=== PATIENT | male | born 1990 | race Caucasian/White ===

== ENCOUNTER 2017-06-20 20:27 | Emergency (ER) | payer BC, OTHER ==
[~2017-06-20] VITALS: Ht 177.8 cm; Wt 97.5 kg
--- OUTSIDE RECORDS SUMMARY | 2017-06-20 20:34 | XMS REPORT ---
Author Author Hedy Perry Organization [facility] Address [address] [place], [place] [id number] Care Team Providers Care Seal Mixer Name Role Phone Hedy Perry PCP Unavailable Allergies and Adverse Reactions Name Reaction Notes Ceclor Plan of Treatment Planned Activity Comments Planned Date Planned Time Plan/Goal COMPLETE CBC W/AUTO DIFF WBC 12/30/2015 12:00 AM COMPREHEN METABOLIC PANEL 12/30/2015 12:00 AM LIPID PANEL 12/30/2015 12:00 AM ASSAY THYROID STIM HORMONE 12/30/2015 12:00 AM Medications Active Name Start Date Estimated Completion Date SIG Comments Augmentin 875-125 mg oral tablet 12/30/2015 01/06/2016 take 1 tablet by oral route every 12 hours for 7 days Name Start Date Expiration Date SIG Comments cyclobenzaprine 5 mg oral tablet 06/30/2014 07/14/2014 take 1 tablet (5 mg) by oral route 3 times per day as needed for muscle strain Problem List Description Status Onset *No known medical problems Active Vital Signs Date Time BP-Sys(mm[Hg] BP-Chelsie(mm[Hg]) HR(bpm) RR(rpm) Temp WT HT HC BMI BSA BMI Percentile O2 Sat(%) 12/30/2015 10:16:00 AM 124 mmHg 68 mmHg 99 bpm 18 rpm 97.8 F 195.5 lbs 70 in 28.05 kg/m2 2.09 m2 97 % 11/15/2015 5:39:00 PM 89 bpm 18 rpm 97.7 F 187.6 lbs 70 in 26.9175 kg/m 2.0501 m 99 % 06/30/2014 6:18:00 PM 128 mmHg 72 mmHg 84 bpm 20 rpm 99 F 200 lbs 70 in 28.70 kg/m2 2.12 m2 99 % Social History Name Description Comments Tobacco Current every day smoker 12/30/2015 - History of Procedures Date Ordered Description Order Status 11/15/2015 12:00 AM Depo-Medrol, Per 80 Mg [facility]#[address]-07 Reviewed 11/15/2015 12:00 AM Decadron, Per 1 Mg [facility]# [address]-99 Reviewed 11/15/2015 12:00 AM THER/PROPH/DIAG INJ SC/IM Reviewed 12/30/2015 12:00 AM TDAP VACCINE 7 YRS/> IM Reviewed Results Summary Not available. History Of Immunizations Name Date Admin Mfg Name Mfg Code Trade Name Lot# Route Inj Vis Given Vis Pub CVX Tdap 12/30/2015 AmberWave SKB BOOSTRIX [id number] Intramuscular Right Deltoid 12/30/2015 06/23/2014 115 History of Past Illness Name Date of Onset Comments *No known medical problems Cervical strain Jun 30 2014 6:23PM Muscle Spasm Jun 30 2014 6:23PM Allergic contact dermatitis due to plants, except food Nov 15 2015 5:40PM Fatigue, unspecified type Dec 30 2015 10:19AM Screening for ischemic heart disease Dec 30 2015 10:19AM Family history of diabetes mellitus in brother Dec 30 2015 10:19AM Dog bite Dec 30 2015 10:19AM Payers Insurance Name Company Name Plan Name Plan Number Policy Number Policy Group Number Start Date [employer] [place] [id number] N/A [employer] [place] [id number] N/A [employer] [place] [id number] N/A History of Encounters Visit Date Visit Type Provider 12/30/2015 Office visit Hedy Perry APRN 11/15/2015 Office visit Moshe Pressley APRN 06/30/2014 Office visit Janis Goode APRN
--- OUTSIDE RECORDS SUMMARY | 2017-06-20 20:34 | XMS REPORT ---
Author Author Moshe Pressley [facility] Address [address] [place], [place] [phone] Care Team Providers Care Film Editor Supervisor Name Role Phone Moshe Pressley PCP Allergies and Adverse Reactions Name Reaction Notes Ceclor Plan of Treatment Not available. Medications Name Start Date Expiration Date SIG Comments cyclobenzaprine 5 mg oral tablet 06/30/2014 07/14/2014 take 1 tablet (5 mg) by oral route 3 times per day as needed for muscle strain Problem List Description Status Onset *No known medical problems Active Vital Signs Date Time BP-Sys(mm[Hg] BP-Chelsie(mm[Hg]) HR(bpm) RR(rpm) Temp WT HT HC BMI BSA BMI Percentile O2 Sat(%) 11/15/2015 5:39:00 PM 89 bpm 18 rpm 97.7 F 187.6 lbs 70 in 26.92 kg/m2 2.05 m2 99 % 06/30/2014 6:18:00 PM 128 mmHg 72 mmHg 84 bpm 20 rpm 99 F 200 lbs 70 in 28.70 kg/m2 2.1167 m 99 % Social History Name Description Comments Tobacco Never smoker Alcohol Light History of Procedures Date Ordered Description Order Status 11/15/2015 12:00 AM Depo-Medrol, Per 80 Mg [facility]#[id number] Reviewed 11/15/2015 12:00 AM Decadron, Per 1 Mg [facility]# [address]-21 Reviewed 11/15/2015 12:00 AM THER/PROPH/DIAG INJ SC/IM Reviewed Results Summary Not available. History Of Immunizations Not available. History of Past Illness Name Date of Onset Comments *No known medical problems Cervical strain Jun 30 2014 6:23PM Muscle Spasm Jun 30 2014 6:23PM Allergic contact dermatitis due to plants, except food Nov 15 2015 5:40PM Payers Insurance Name Company Name Plan Name Plan Number Policy Number Policy Group Number [id number] N/A [employer] [place] [id number] N/A [employer] [place] [id number] N/A History of Encounters Visit Date Visit Type Provider 11/15/2015 Office visit Moshe Pressley APRN 06/30/2014 Office visit Janis Goode APRN
--- OUTSIDE RECORDS SUMMARY | 2017-06-20 20:35 | XMS REPORT ---
Author Author Moshe Pressley [facility] Address [address] [place], [place] [phone] Care Team Providers Care Copy Writer Name Role Phone Moshe Pressley PCP Allergies and Adverse Reactions Name Reaction Notes Ceclor Plan of Treatment Planned Activity Comments Planned Date Planned Time Plan/Goal COMPLETE CBC W/AUTO DIFF WBC 12/30/2015 12:00 AM COMPREHEN METABOLIC PANEL 12/30/2015 12:00 AM LIPID PANEL 12/30/2015 12:00 AM ASSAY THYROID STIM HORMONE 12/30/2015 12:00 AM Medications Name Start Date Expiration Date SIG Comments cyclobenzaprine 5 mg oral tablet 06/30/2014 07/14/2014 take 1 tablet (5 mg) by oral route 3 times per day as needed for muscle strain Augmentin 875-125 mg oral tablet 12/30/2015 01/06/2016 take 1 tablet by oral route every 12 hours for 7 days Problem List Description Status Onset *No known medical problems Active Vital Signs Date Time BP-Sys(mm[Hg] BP-Chelsie(mm[Hg]) HR(bpm) RR(rpm) Temp WT HT HC BMI BSA BMI Percentile O2 Sat(%) 01/31/2016 5:17:00 PM 124 mmHg 62 mmHg 77 bpm 18 rpm 98.2 F 197.375 lbs 70 in 28.32 kg/m2 2.10 m2 99 % 12/30/2015 10:16:00 AM 124 mmHg 68 mmHg 99 bpm 18 rpm 97.8 F 195.5 lbs 70 in 28.051 kg/m 2.0928 m 97 % 11/15/2015 5:39:00 PM 89 bpm 18 rpm 97.7 F 187.6 lbs 70 in 26.92 kg/m2 2.05 m2 99 % 06/30/2014 6:18:00 PM 128 mmHg 72 mmHg 84 bpm 20 rpm 99 F 200 lbs 70 in 28.6967 kg/m 2.1167 m 99 % Social History Name Description Comments Tobacco Current every day smoker 12/30/2015 - History of Procedures Date Ordered Description Order Status 11/15/2015 12:00 AM Depo-Medrol, Per 80 Mg [facility]#[id number] Reviewed 11/15/2015 12:00 AM Decadron, Per 1 Mg [place]# [address]-96 Reviewed 11/15/2015 12:00 AM THER/PROPH/DIAG INJ SC/IM Reviewed 12/30/2015 12:00 AM TDAP VACCINE 7 YRS/> IM Reviewed 01/31/2016 12:00 AM Decadron, Per 1 Mg [facility]# [address]-99 Reviewed 01/31/2016 12:00 AM Depo-Medrol, Per 80 Mg [facility]#[address]-60 Reviewed Results Summary Not available. History Of Immunizations Name Date Admin Mfg Name Mfg Code Trade Name Lot# Route Inj Vis Given Vis Pub CVX Tdap 12/30/2015 [employer] SKB BOOSTRIX [id number] Intramuscular Right Deltoid 12/30/2015 [...] 10:19AM Dog bite Dec 30 2015 10:19AM Allergic contact dermatitis due to plants, except food Jan 31 2016 5:18PM Payers Insurance Name Company Name Plan Name Plan Number Policy Number Policy Group Number Start Date [employer] [place] [id number] N/A [employer] [place] [id number] N/A [employer] [place] [id number] N/A History of Encounters Visit Date Visit Type Provider 01/31/2016 Office visit Moshe Pressley APRN 12/30/2015 Office visit Hedy Perry APRN 11/15/2015 Office visit Moshe Pressley APRN 06/30/2014 Office visit Janis Goode APRN
--- OUTSIDE RECORDS SUMMARY | 2017-06-20 20:35 | XMS REPORT | Continuity of Care Document ---
Author Author [facility] Organization [facility] Address Unknown Phone Unavailable Allergies There is no data. Medications There is no data. Problems There is no data. Procedures There is no data. Results There is no data. Encounters ACCT No. Visit Date/Time Discharge Status Pt. Type Provider Facility Loc./Unit Complaint [id number] 02/21/2016 19:16:04 02/21/2016 23:59:59 [facility] Outpatient Moshe Pressley [id number] 01/31/2016 18:11:05 01/31/2016 23:59:59 [facility] Outpatient Moshe Pressley [id number] 12/30/2015 10:59:54 12/30/2015 23:59:59 [facility] Outpatient Hedy Perry [id number] 11/15/2015 18:34:52 11/15/2015 23:59:59 [facility] Outpatient Moshe Pressley
--- OUTSIDE RECORDS SUMMARY | 2017-06-20 20:35 | XMS REPORT ---
Author Author Moshe Pressley [facility] Address [address] [place], [place] [phone] Care Team Providers Care Honing Machine Try Out Setter Name Role Phone Moshe Pressley PCP Allergies and Adverse Reactions Name Reaction Notes Ceclor Plan of Treatment Planned Activity Comments Planned Date Planned Time Plan/Goal CBC With Auto Differential 12/30/2015 12:00 AM CMP (comprehensive metabolic panel) 12/30/2015 12:00 AM .Lipid Panel 12/30/2015 12:00 AM TSH 12/30/2015 12:00 AM Medications Name Start Date Expiration Date SIG Comments cyclobenzaprine 5 mg oral tablet 06/30/2014 07/14/2014 take 1 tablet (5 mg) by oral route 3 times per day as needed for muscle strain Augmentin 875-125 mg oral tablet 12/30/2015 01/06/2016 take 1 tablet by oral route every 12 hours for 7 days Zofran ODT 4 mg oral tablet,disintegrating 02/21/2016 02/24/2016 dissolve 1 tablet by oral route every 8 hours for 3 days Problem List Description Status Onset *No known medical problems Active Vital Signs Date Time BP-Sys(mm[Hg] BP-Chelsie(mm[Hg]) HR(bpm) RR(rpm) Temp WT HT HC BMI BSA BMI Percentile O2 Sat(%) 02/21/2016 6:20:00 PM 130 mmHg 78 mmHg 88 bpm 98.6 F 197 lbs 70 in 28.27 kg/m2 2.10 m2 100 % 01/31/2016 5:17:00 PM 124 mmHg 62 mmHg 77 bpm 18 rpm 98.2 F 197.375 lbs 70 in 28.3201 kg/m 2.1028 m 99 % 12/30/2015 10:16:00 AM 124 mmHg [...] 11/15/2015 12:00 AM Depo-Medrol, Per 80 Mg [facility]#[id number] Reviewed 11/15/2015 12:00 AM Decadron, Per 1 Mg [facility]# [address]-25 Reviewed 11/15/2015 12:00 AM THER/PROPH/DIAG INJ SC/IM Reviewed 12/30/2015 12:00 AM TDAP VACCINE 7 YRS/> IM Reviewed 01/31/2016 12:00 AM Decadron, Per 1 Mg [facility]# [address]-98 Reviewed 01/31/2016 12:00 AM Depo-Medrol, Per 80 Mg [facility]#[address]-91 Reviewed Results Summary Not available. History Of Immunizations Name Date Admin Mfg Name Mfg Code Trade Name Lot# Route Inj Vis Given Vis Pub CVX Tdap 12/30/2015 Janrain SKB BOOSTRIX [id number] Intramuscular Right Deltoid 12/30/2015 [...] plants, except food Jan 31 2016 5:18PM Viral gastroenteritis Feb 21 2016 6:23PM Fever in other diseases Feb 21 2016 6:23PM Payers Insurance Name Company Name Plan Name Plan Number Policy Number Policy Group Number Start Date [employer] [place] [id number] N/A BCBS [employer] [facility] [id number] N/A [employer] [place] [id number] N/A History of Encounters Visit Date Visit Type Provider 02/21/2016 Office visit Moshe Pressley APRN 01/31/2016 Office visit Moshe Pressley APRN 12/30/2015 Office visit Hedy Perry APRN 11/15/2015 Office visit Moshe Pressley APRN 06/30/2014 Office visit Janis Goode APRN
[2017-06-20] MEDS ORDERED: KETOROLAC 30 MG/ML VIAL IVP ONE (20:45)
--- NOTE | 2017-06-20 20:48 | ED Chest Pain ---
General Chief Complaint: Chest Pain Stated Complaint: CHEST PAIN Source: patient Exam Limitations: no limitations History of Present Illness Date Seen by Provider: Jun 20, 2017 Time Seen by Provider: 20:46 Initial Comments To ER per private vehicle with reports of sharp right sided sternal chest pain. This began when he was climbing into his truck and reached over to pull the door shut he developed a sharp right-sided chest pain. This then became a heavy sensation and that was worsened with deep breathing so he was breathing very shallow. He does smoke cigarettes family history of cardiovascular disease. Movement worsens the pain and rest improves the pain Timing/Duration: 1-3 hours Severity/Quality: moderate Location: central Radiation: no radiation Activities at Onset: none Allergies and Home Medications Allergies Coded Allergies: cefaclor (Unverified Adverse Reaction, Unknown, 06/20/17) Home Medications No Active Prescriptions or Reported Meds Review of Systems Constitutional: see HPI EENTM: No Symptoms Reported Respiratory: No Symptoms Reported Cardiovascular: See HPI, Chest Pain Gastrointestinal: No Symptoms Reported Genitourinary: No Symptoms Reported Musculoskeletal: no symptoms reported Skin: no symptoms reported Psychiatric/Neurological: No Symptoms Reported Endocrine: No Symptoms Reported Past Liqvmqc-Gtrpzv-Ywyzhg Hx Patient Social History Recent Foreign Travel: No Contact w/Someone Who Travel: No Physical Exam Vital Signs Vital Signs - First Documented 06/20/17 06/20/17 20:45 21:19 Temp 98.2 Pulse 78 Resp 18 B/P (MAP) 152/97 (115) O2 Delivery Room Air Capillary Refill : General Appearance: No Apparent Distress, WD/WN HEENT: PERRL/EOMI, TMs Normal Respiratory: Normal Breath Sounds, No Accessory Muscle Use, No Respiratory Distress, Other (right sternal border is tender to palpation, pain increases with adduction of the arms) Cardiovascular: Regular Rate, Rhythm, Normal Peripheral Pulses Gastrointestinal: Normal Bowel Sounds, Non Tender, Soft Extremity: Normal Capillary Refill, Normal Inspection Neurologic/Psychiatric: Alert, Oriented x3, No Motor/Sensory Deficits Skin: Normal Color, Warm/Dry Progress/Results/Core Measures Results/Orders Lab Results Laboratory Tests Test 06/20/17 20:52 Range/Units White Blood Count 10.4 4.3-11.0 10^3/uL Red Blood Count 5.39 4.35-5.85 10^6/uL Hemoglobin 17.3 13.3-17.7 G/DL Hematocrit 47 40-54 % Mean Corpuscular Volume 88 80-99 FL Mean Corpuscular Hemoglobin 32 25-34 PG Mean Corpuscular Hemoglobin Concent 37 H 32-36 G/DL Red Cell Distribution Width 12.2 10.0-14.5 % Platelet Count 295 130-400 10^3/uL Mean Platelet Volume 10.1 7.4-10.4 FL Neutrophils (%) (Auto) 71 42-75 % Lymphocytes (%) (Auto) 18 12-44 % Monocytes (%) (Auto) 9 0-12 % Eosinophils (%) (Auto) 3 0-10 % Basophils (%) (Auto) 1 0-10 % Neutrophils # (Auto) 7.3 1.8-7.8 X 10^3 Lymphocytes # (Auto) 1.8 1.0-4.0 X 10^3 Monocytes # (Auto) 0.9 0.0-1.0 X 10^3 Eosinophils # (Auto) 0.3 0.0-0.3 10^3/uL Basophils # (Auto) 0.1 0.0-0.1 10^3/uL D-Dimer < 0.27 0.00-0.49 UG/ML Sodium Level 139 135-145 MMOL/L Potassium Level 3.8 3.6-5.0 MMOL/L Chloride Level 103 98-107 MMOL/L Carbon Dioxide Level 22 21-32 MMOL/L Anion Gap 14 5-14 MMOL/L Blood Urea Nitrogen 8 7-18 MG/DL Creatinine 0.80 0.60-1.30 MG/DL Estimat Glomerular Filtration Rate > 60 BUN/Creatinine Ratio 10 Glucose Level 95 70-105 MG/DL Calcium Level 9.4 8.5-10.1 MG/DL Total Bilirubin 0.5 0.1-1.0 MG/DL Aspartate Amino Transf (AST/SGOT) 32 5-34 U/L Alanine Aminotransferase (ALT/SGPT) 95 H 0-55 U/L Alkaline Phosphatase 71 40-136 U/L Troponin I < 0.30 <0.30 NG/ML Total Protein 7.6 6.4-8.2 GM/DL Albumin 4.6 H 3.2-4.5 GM/DL My Orders Orders - ROJELIO HOLLINS [facility] [employer] Cbc With Automated Diff (06/20/17 20:44) Comprehensive Metabolic Panel (06/20/17 20:44) Fibrin Degradation Products (06/20/17 20:44) Chest Pa/Lat (2 View) (06/20/17 20:44) Ekg Tracing (06/20/17 20:44) Troponin I (06/20/17 20:44) Saline Lock/Iv-Start (06/20/17 20:44) Ketorolac Injection (Toradol Injection) (06/20/17 20:45) Medications Given in ED Current Medications Medications Dose Ordered Sig/Arnol Route Start Time Stop Time Status Last Admin Dose Admin Ketorolac Tromethamine 30 mg ONCE ONCE IVP 06/20/17 20:45 06/20/17 20:46 DC 06/20/17 20:58 30 MG Vital Signs/I&O Vital Sign - Last 12Hours 06/20/17 06/20/17 20:45 21:19 Temp 98.2 Pulse 78 Resp 18 B/P (MAP) 152/97 (115) O2 Delivery Room Air Departure Impression Impression: Primary Impression: Chest wall pain Disposition: HOME, SELF-CARE Condition: Stable Departure-Patient Inst. Decision time for Depature: 21:58 Referrals: NO,LOCAL PHYSICIAN (PCP) Primary Care Physician Patient Instructions: Chest Pain That Is Not Caused by the Heart (DC) Add. Discharge Instructions: 1. Return to ER for any concerns 2. Follow-up with your doctor next week 3. All discharge instructions reviewed with patient and/or family. Voiced understanding. Scripts No Active Prescriptions or Reported Meds ROJELIO HOLLINS APRN Jun 20, 2017 20:48
[2017-06-20 21:02] LABS: BASOPHILS # (AUTO) 0.1 10^3/uL (0.0-0.1); BASOPHILS % (AUTO) 1 % (0-10); EOSINOPHILS # (AUTO) 0.3 10^3/uL (0.0-0.3); EOSINOPHILS % (AUTO) 3 % (0-10); HEMATOCRIT 47 % (40-54); HEMOGLOBIN 17.3 G/DL (13.3-17.7); LYMPHOCYTES # (AUTO) 1.8 X 10^3 (1.0-4.0); LYMPHOCYTES % (AUTO) 18 % (12-44); MEAN CORPUSCULAR HEMOGLOBIN 32 PG (25-34); MEAN CORPUSCULAR HGB CONC 37 G/DL (32-36); MEAN CORPUSCULAR VOLUME 88 FL (80-99); MEAN PLATELET VOLUME 10.1 FL (7.4-10.4); MONOCYTES # (AUTO) 0.9 X 10^3 (0.0-1.0); MONOCYTES % (AUTO) 9 % (0-12); NEUTROPHILS # (AUTO) 7.3 X 10^3 (1.8-7.8); NEUTROPHILS % (AUTO) 71 % (42-75); PLATELET COUNT 295 10^3/uL (130-400); RED BLOOD COUNT 5.39 10^6/uL (4.35-5.85); RED CELL DISTRIBUTION WIDTH 12.2 % (10.0-14.5); WHITE BLOOD COUNT 10.4 10^3/uL (4.3-11.0)
[2017-06-20 21:20] LABS: ALANINE AMINOTRANSFERASE 95 U/L (0-55); ALBUMIN 4.6 GM/DL (3.2-4.5); ALKALINE PHOSPHATASE 71 U/L (40-136); BILIRUBIN,TOTAL 0.5 MG/DL (0.1-1.0); BUN/CREATININE RATIO 10; CALCIUM 9.4 MG/DL (8.5-10.1); CARBON DIOXIDE 22 MMOL/L (21-32); CHLORIDE 103 MMOL/L (98-107); GFR ESTIMATED > 60; GLUCOSE 95 MG/DL (70-105); POTASSIUM 3.8 MMOL/L (3.6-5.0); SODIUM 139 MMOL/L (135-145); TOTAL PROTEIN 7.6 GM/DL (6.4-8.2)
--- NOTE | 2017-06-20 21:52 | Diagnostic Imaging Report ---
INDICATION: Chest pain, onset one hour ago, worse with deep inspiration. TECHNIQUE: Two view chest, 9:43 p.m. CORRELATION STUDY: None. FINDINGS: The heart size, mediastinal configuration and pulmonary vasculature are within normal limits. Slight increased markings at the right lung base, likely reflective of some lung crowding with atelectasis. Infiltrate considered less likely. No effusion or pneumothorax. IMPRESSION: Some crowding of the lung bases with likely atelectasis. No definitive infiltrate or otherwise acute abnormality of the chest. Dictated by: Dictated on workstation # [id number]
[2017-06-20 22:13] VITALS: BP 133/85
== END 2017-06-20 22:13 | disposition home or self-care (01) ==
LOC: EDUNIT# 20:27 → ER 20:31
DX: R07.89 Other chest pain (principal); Z88.8 Allergy status to other drugs, medicaments and biological substances; X50.0XXA Overexertion from strenuous movement or load, initial encounter
CPT/HCPCS: 36415; 71046; 80053; 84484; 85025; 85379; 93005; 96374

== ENCOUNTER 2019-09-24 16:02 | Emergency (ER) | payer SELFPAY ==
[~2019-09-24] VITALS: Ht 185 cm; Wt 100.0 kg
[2019-09-24] MEDS ORDERED: ANTACID SUSP 30 ML UDC (MYLANTA) PO ONE (16:15)
[2019-09-24] MEDS ORDERED: LACTATED RINGERS 1,000 ML IV SCH (16:15)
[2019-09-24] MEDS ORDERED: PROMETHAZINE INJ 25 MG/ML (PHENERGAN) AMP IVP ONE (16:15)
[2019-09-24] MEDS ORDERED: LIDOCAINE 2% VISCOUS 15 ML UDC PO ONE (16:15)
--- NOTE | 2019-09-24 16:15 | ED Abdominal Pain ---
General Stated Complaint: VOMITING,CP, ABD PAIN Source of Information: Patient Exam Limitations: No Limitations History of Present Illness Date Seen by Provider: September 24, 2019 Time Seen by Provider: 16:14 Initial Comments Review reports that he developed with epigastric abdominal pain, chest pain, nausea vomiting diarrhea. He noticed blood that was bright red blood in the diarrhea and in the vomit. He also reports an episode of uncontrollable shaking at home prior to arrival. 7 beers yesterday but states he does not drink daily. He does feel very anxious, he takes citalopram for anxiety. He reports that his dog 2-3 weeks she's been drinking between 6 and 12 beers per day. Last drink was yesterday Timing/Duration: 12-24 Hours Severity/Quality: Moderate Location: Epigastric Radiation: No Radiation Activities at Onset: None Associated Symptoms: Nausea/Vomiting Allergies and Home Medications Allergies Coded Allergies: cefaclor (Unverified Adverse Reaction, Unknown, 06/20/17) Home Medications No Active Prescriptions or Reported Meds Patient Home Medication List Home Medication List Reviewed: Yes Review of Systems Review of Systems Constitutional: see HPI, chills, diaphoresis EENTM: No Symptoms Reported Respiratory: No Symptoms Reported Cardiovascular: No Symptoms Reported Gastrointestinal: See HPI, Abdominal Pain Genitourinary: No Symptoms Reported Musculoskeletal: no symptoms reported Skin: no symptoms reported Psychiatric/Neurological: No Symptoms Reported Endocrine: No Symptoms Reported Past Rdlhoye-Azowgz-Ptktty Hx Patient Social History Recent Foreign Travel: No Contact w/Someone Who Travel: No Recent Hopitalizations: No Seasonal Allergies Seasonal Allergies: No Past Medical History Surgeries: Yes Tonsillectomy Respiratory: Yes (asthma as a child) Cardiac: Yes (heart murmur as a child) Physical Exam Vital Signs Vital Signs - First Documented 09/24/19 16:15 Temp 36.8 Pulse 84 Resp 18 B/P (MAP) 150/99 (116) Pulse Ox 98 O2 Delivery Room Air Capillary Refill : Height/Weight/BMI Height: 5'10.00" Weight: 215lbs. oz. 97.098149qs; BMI Method:Stated General Appearance: WD/WN, no apparent distress, other (anxious, diaphoretic. ) Neck: non-tender, full range of motion Respiratory: no respiratory distress, no accessory muscle use Cardiovascular: regular rate, rhythm, no murmur, other (EKG shows mild diffuse ST segment elevation. ) Gastrointestinal: normal bowel sounds, soft Extremities: normal range of motion, non-tender Neurologic/Psychiatric: alert, normal mood/affect, oriented x 3 Skin: normal color, warm/dry Progress/Results/Core Measures Results/Orders Lab Results Laboratory Tests Test 09/24/19 16:08 09/24/19 16:16 Range/Units White Blood Count 11.6 H 4.3-11.0 10^3/uL Red Blood Count 5.60 4.35-5.85 10^6/uL Hemoglobin 18.0 H 13.3-17.7 G/DL Hematocrit 50 40-54 % Mean Corpuscular Volume 90 80-99 FL Mean Corpuscular Hemoglobin 32 25-34 PG Mean Corpuscular Hemoglobin Concent 36 32-36 G/DL Red Cell Distribution Width 12.9 10.0-14.5 % Platelet Count 299 130-400 10^3/uL Mean Platelet Volume 10.1 7.4-10.4 FL Neutrophils (%) (Auto) 74 42-75 % Lymphocytes (%) (Auto) 14 12-44 % Monocytes (%) (Auto) 10 0-12 % Eosinophils (%) (Auto) 2 0-10 % Basophils (%) (Auto) 0 0-10 % Neutrophils # (Auto) 8.6 H 1.8-7.8 X 10^3 Lymphocytes # (Auto) 1.6 1.0-4.0 X 10^3 Monocytes # (Auto) 1.1 H 0.0-1.0 X 10^3 Eosinophils # (Auto) 0.3 0.0-0.3 10^3/uL Basophils # (Auto) 0.0 0.0-0.1 10^3/uL Sodium Level 140 135-145 MMOL/L Potassium Level 4.3 3.6-5.0 MMOL/L Chloride Level 105 98-107 MMOL/L Carbon Dioxide Level 22 21-32 MMOL/L Anion Gap 13 5-14 MMOL/L Blood Urea Nitrogen 9 7-18 MG/DL Creatinine 0.89 0.60-1.30 MG/DL Estimat Glomerular Filtration Rate > 60 BUN/Creatinine Ratio 10 Glucose Level 126 H 70-105 MG/DL Calcium Level 9.8 8.5-10.1 MG/DL Corrected Calcium 8.5-10.1 MG/DL Total Bilirubin 0.5 0.1-1.0 MG/DL Aspartate Amino Transf (AST/SGOT) 108 H 5-34 U/L Alanine Aminotransferase (ALT/SGPT) 254 H 0-55 U/L Alkaline Phosphatase 85 40-136 U/L C-Reactive Protein High Sensitivity 0.45 0.00-0.50 MG/DL Total Protein 7.9 6.4-8.2 GM/DL Albumin 4.9 H 3.2-4.5 GM/DL Lipase 26 8-78 U/L Erythrocyte Sedimentation Rate 1 0-15 MM/HR Troponin I < 0.028 <0.028 NG/ML My Orders Orders - ROJELIO HOLLINS APRN Cbc With Automated Diff (09/24/19 16:12) Comprehensive Metabolic Panel (09/24/19 16:12) Lipase (09/24/19 16:12) Ua Culture If Indicated (09/24/19 16:12) Hs C Reactive Protein (09/24/19 16:12) Ed Iv/Invasive Line Start (09/24/19 16:12) Chest 1 View, Ap/Pa Only (09/24/19 16:12) Lactated Ringers (Lr 1000 Ml Iv Solution (09/24/19 16:15) Promethazine Injection (Phenergan Injec (09/24/19 16:15) Antacid Suspension (Mylanta Suspension (09/24/19 16:15) Lidocaine 2% Viscous 15 Ml (Xylocaine Vi (09/24/19 16:15) Ekg Tracing (09/24/19 16:17) Troponin I (09/24/19 16:20) Erythrocyte Sedimentation Rate (09/24/19 16:20) Ketorolac Injection (Toradol Injection) (09/24/19 16:30) Drug Screen Stat (Urine) (09/24/19 16:37) Lorazepam Injection (Ativan Injection) (09/24/19 16:45) Ondansetron Injection (Zofran Injectio (09/24/19 17:00) Medications Given in ED Current Medications Medications Dose Ordered Sig/Arnol Route Start Time Stop Time Status Last Admin Dose Admin Al Hydrox/Mg Hydrox/Simethicone 30 ml ONCE ONCE PO 09/24/19 16:15 09/24/19 16:16 DC 09/24/19 16:22 30 ML Ketorolac Tromethamine 30 mg ONCE ONCE IVP 09/24/19 16:30 09/24/19 16:31 DC 09/24/19 16:26 30 MG Lidocaine HCl 10 ml ONCE ONCE PO 09/24/19 16:15 09/24/19 16:16 DC 09/24/19 16:22 10 ML Lorazepam 1 mg ONCE ONCE IVP 09/24/19 16:45 09/24/19 16:46 DC 09/24/19 17:02 1 MG Ondansetron HCl 8 mg ONCE ONCE IVP 09/24/19 17:00 09/24/19 17:01 DC 09/24/19 17:02 8 MG Promethazine HCl 25 mg ONCE ONCE IVP 09/24/19 16:15 09/24/19 16:16 DC 09/24/19 16:22 25 MG Vital Signs/I&O 09/24/19 16:15 Temp 36.8 Pulse 84 Resp 18 B/P (MAP) 150/99 (116) Pulse Ox 98 O2 Delivery Room Air Diagnostic Imaging Diagonstic Imaging: Xray Comments NAME: ESTEFANI KOVACS [facility] REC#: [id number] PT STATUS: REG ER : 1990 PHYSICIAN: ROJELIO HOLLINS APRN ADMIT DATE: 09/24/19/ER Draft Date of Exam:09/24/19 CHEST 1 VIEW, AP/PA ONLY INDICATION: Shortness of air. COMPARISON: 06/20/2017. FINDINGS: There is no focal consolidation. There is elevation of the right diaphragm. No effusion or pneumothorax. IMPRESSION: Mild elevation of the right diaphragm, otherwise negative. Dictated on workstation # [id number] Dict: 09/24/191655 Trans: 09/24/19 [id number] Interpreted by: MIRIAM BROWNE Electronically signed by: Departure Communication (Admissions) ST segment is minimally elevated diffusely which could represent a pericarditis given his chest pain, however his inflammatory markers are normal and would not support that diagnosis.Differential diagnosis includes ETOH withdrawal vs gastroenteritis+anxiety. 1714-after 1mg lorazepam IV + 25mg phenergan IV, hes feeling quite a bit better, offered admission but would like to just stay to finish his IV fluids then go home if he's still feeling like he is now. Very appreciative of care. Will observe and dc to home if still symptoms stable. Impression Primary Impression: Nausea and vomiting Additional Impression: Diaphoresis Disposition: 01 HOME, SELF-CARE Condition: Improved Departure-Patient Inst. Decision time for Depature: 17:15 Referrals: GIOVANNA MASTERS MD (PCP/Family) Primary Care Physician Patient Instructions: No Instuctions Given Add. Discharge Instructions: 1. Call Dr. Masters for appointment for follow-up. Return to ER for any intolerable symptoms. Nausea medication as directed and anxiety medication as needed but do not mix it with alcohol. Scripts Promethazine HCl (Promethazine Tablet) 25 Mg Tablet 25 MG PO Q6H PRN for NAUSEA/VOMITING, #14 TAB Prov: ROJELIO HOLLINS APRN 09/24/19 Copy Copies To 1: GIOVANNA MASTERS MD, PETER J APRN September 24, 2019 16:15
[2019-09-24 16:23] LABS: BASOPHILS % (AUTO) 0 % (0-10); EOSINOPHILS # (AUTO) 0.3 10^3/uL (0.0-0.3); EOSINOPHILS % (AUTO) 2 % (0-10); HEMATOCRIT 50 % (40-54); LYMPHOCYTES # (AUTO) 1.6 X 10^3 (1.0-4.0); LYMPHOCYTES % (AUTO) 14 % (12-44); MEAN CORPUSCULAR HEMOGLOBIN 32 PG (25-34); MEAN CORPUSCULAR HGB CONC 36 G/DL (32-36); MEAN CORPUSCULAR VOLUME 90 FL (80-99); MEAN PLATELET VOLUME 10.1 FL (7.4-10.4); MONOCYTES # (AUTO) 1.1 X 10^3 (0.0-1.0); MONOCYTES % (AUTO) 10 % (0-12); NEUTROPHILS # (AUTO) 8.6 X 10^3 (1.8-7.8); NEUTROPHILS % (AUTO) 74 % (42-75); PLATELET COUNT 299 10^3/uL (130-400); RED CELL DISTRIBUTION WIDTH 12.9 % (10.0-14.5); WHITE BLOOD COUNT 11.6 10^3/uL (4.3-11.0)
[2019-09-24 16:30] LABS: ALBUMIN 4.9 GM/DL (3.2-4.5); CHLORIDE 105 MMOL/L (98-107); POTASSIUM 4.3 MMOL/L (3.6-5.0); SODIUM 140 MMOL/L (135-145)
[2019-09-24] MEDS ORDERED: KETOROLAC 30 MG/ML VIAL IVP ONE (16:30)
[2019-09-24 16:31] LABS: CALCIUM 9.8 MG/DL (8.5-10.1)
[2019-09-24 16:33] LABS: GLUCOSE 126 MG/DL (70-105); TOTAL PROTEIN 7.9 GM/DL (6.4-8.2)
[2019-09-24 16:34] LABS: BILIRUBIN,TOTAL 0.5 MG/DL (0.1-1.0); CARBON DIOXIDE 22 MMOL/L (21-32)
[2019-09-24 16:36] LABS: ALKALINE PHOSPHATASE 85 U/L (40-136); CREATININE SERUM 0.89 MG/DL (0.60-1.30); GFR ESTIMATED > 60
[2019-09-24 16:37] LABS: BUN/CREATININE RATIO 10
[2019-09-24 16:39] LABS: ALANINE AMINOTRANSFERASE 254 U/L (0-55)
[2019-09-24 16:40] LABS: LIPASE 26 U/L (8-78)
[2019-09-24] MEDS ORDERED: LORazepam INJ 2 MG/ML (ATIVAN) VIAL IVP ONE (16:45)
--- NOTE | 2019-09-24 16:59 | Diagnostic Imaging Report ---
INDICATION: Shortness of air. COMPARISON: 06/20/2017. FINDINGS: There is no focal consolidation. There is elevation of the right diaphragm. No effusion or pneumothorax. IMPRESSION: Mild elevation of the right diaphragm, otherwise negative. Dictated by: Dictated on workstation # [id number]
[2019-09-24] MEDS ORDERED: ONDANSETRON 4 MG/2 ML (SDV) Z0FRAN IVP ONE (17:00)
[2019-09-24] MEDS ORDERED: PROM25TA14 PO (17:17)
[2019-09-24] MEDS ORDERED: LORA-405 PO (17:17)
[2019-09-24 17:55] VITALS: BP 136/77
--- OUTSIDE RECORDS SUMMARY | 2019-09-24 20:56 | XMS REPORT | Continuity of Care Document ---
Author Organization Unknown Address Unknown Phone Unavailable Allergies Active Description Code Type Severity Reaction Onset Reported/Identified Relationship to Patient Clinical Status Yes cefaclor [id number] Drug Allergy Unknown N/A 06/20/2017 Medications There is no data. Problems Date Dx Coded Attending Type Code Diagnosis Diagnosed By 06/20/2017 ROJELIO HOLLINS APRN Ot R07 .2 PRECORDIAL PAIN 06/20/2017 ROJELIO HOLLINS APRN Ot R07.89 OTHER CHEST PAIN 06/20/2017 ROJELIO HOLLINS APRN Ot X50.0XXA OVEREXERTION FROM STRENUOUS MOVEMENT OR 06/20/2017 ROJELIO OHLLINS APRN Ot Z88 .8 ALLERGY STATUS TO OTH DRUG/MEDS/BIOL SUB 06/22/2017 ROJELIO HOLLINS APRN Ot R07 .2 PRECORDIAL PAIN 06/22/2017 ROJELIO HOLLINS APRN Ot R07.89 OTHER CHEST PAIN 06/22/2017 ROJELIO HOLLINS APRN Ot X50.0XXA OVEREXERTION FROM STRENUOUS MOVEMENT OR 06/22/2017 ROJELIO HOLLINS APRN Ot Z88 .8 ALLERGY STATUS TO OTH DRUG/MEDS/BIOL SUB Procedures There is no data. Results Test Result Range Complete blood count (CBC) with automate d white blood cell (WBC) differential - 06/20/17 20:52 Blood leukocytes automated count (number/volume) 10.4 10*3/uL 4.3-11.0 Blood erythrocytes automated count (number/volume) 5.39 10*6/uL 4.35-5.85 Venous blood hemoglobin measurement (mass/volume) 17.3 g/dL 13.3-17.7 Blood hematocrit (volume fraction) 47 % 40-54 Automated erythrocyte mean corpuscular volume 88 [ foz_us] 80-99 Automated erythrocyte mean corpuscular h emoglobin (mass per erythrocyte) 32 pg 25-34 Automated erythrocyte mean corpuscular h emoglobin concentration measurement (mass/volume) 37 g/dL 32-36 Automated erythrocyte distribution width ratio 12. 2 % 10.0- 14.5 Automated blood platelet count (count/volume) 295 10*3/uL 130-400 Automated blood platelet mean volume measurement 10.1 [foz_us] 7.4-10.4 Automated blood neutrophils/100 leukocytes 71 % 42-75 Automated blood lymphocytes/100 leukocytes 18 % 12-44 Blood monocytes/100 leukocytes 9 % 0-12 Automated blood eosinophils/100 leukocytes 3 % 0-10 Automated blood basophils/100 leukocytes 1 % 0-10 Blood neutrophils automated count (number/volume) 7.3 10*3 1.8-7.8 Blood lymphocytes automated count (number/volume) 1.8 10*3 1.0-4.0 Blood monocytes automated count (number/volume) 0. 9 10*3 0.0-1.0 Automated eosinophil count 0.3 10*3/uL 0 .0-0.3 Automated blood basophil count (count/volume) 0.1 10*3/uL 0.0-0.1 Fibrin D-dimer FEU measurement in platel et poor plasma (mass/volume) - 06/20/17 20:52 Fibrin D-dimer FEU measurement in platelet poor plasma (mass/volume) < ug/mL 0.00-0.49 Comprehensive metabolic panel - 06/20/17 20:52 Serum or plasma sodium measurement (moles/volume) 139 mmol/L 135-145 Serum or plasma potassium measurement (moles/volume) 3.8 mmol/L 3.6-5.0 Serum or plasma chloride measurement (moles/volume) 103 mmol/L 98-107 Carbon dioxide 22 mmol/L 21-32 Serum or plasma anion gap determination (moles/volume) 14 mmol/L 5-14 Serum or plasma urea nitrogen measurement (mass/volume ) 8 mg/dL 7-18 Serum or plasma creatinine measurement (mass/volume) 0.80 mg/dL 0.60-1.30 Serum or plasma urea nitrogen/creatinine mass ratio 10 NRG Serum or plasma creatinine measurement w ith calculation of estimated glomerular filtration rate > NRG Serum or plasma glucose measurement (mass/volume) 95 mg/dL 70-105 Serum or plasma calcium measurement (mass/volume) 9.4 mg/dL 8.5-10.1 Serum or plasma total bilirubin measurement (mass/volu me) 0.5 mg/dL 0.1-1.0 Serum or plasma alkaline phosphatase marc surement (enzymatic activity/volume) 71 U/L 40-136 Serum or plasma aspartate aminotransfera se measurement (enzymatic activity/volume) 32 U/L 5-34 Serum or plasma alanine aminotransferase measurement (enzymatic activity/volume) 95 U/L 0-55 Serum or plasma protein measurement (mass/volume) 7.6 g/dL 6.4-8.2 Serum or plasma albumin measurement (mass/volume) 4.6 g/dL 3.2-4.5 Serum or plasma troponin i.cardiac measu rement (mass/volume) - 06/20/17 20:52 Serum or plasma troponin i.cardiac measurement (mass/v olume) < ng/mL <0.30 Encounters ACCT No. Visit Date/Time Discharge Status Pt. Type Provider Facility Loc./Unit Complaint [id number] 02/21/2016 19:16:04 02/21/2016 23:59: 59 [facility] Outpatient Moshe Pressley [id number] 01/31/2016 18:11:05 01/31/2016 23:59: 59 CLS Outpatient Moshe Pressley [id number] 12/30/2015 10:59:54 12/30/2015 23:59: 59 CLS Outpatient Hedy Perry [id number] 11/15/2015 18:34:52 11/15/2015 23:59: 59 CLS Outpatient Moshe Pressley [id number] 06/20/2017 20:31:00 018 22:13:00 DIS Emergency ROJELIO HOLLINS APRN Via [facility] ER CHEST PAIN
== END 2019-09-24 17:57 | disposition home or self-care (01) ==
LOC: EDUNIT# 16:02 → ER 16:03
DX: R11.2 Nausea with vomiting, unspecified (principal); R61 Generalized hyperhidrosis; F41.9 Anxiety disorder, unspecified; Z88.1 Allergy status to other antibiotic agents; Z90.89 Acquired absence of other organs
CPT/HCPCS: 36415; 71045; 80053; 83690; 84484; 85025; 85652; 86141; 93005; 96374; 96375

== ENCOUNTER 2019-09-26 19:39 | Inpatient (IN) | payer SELFPAY ==
[~2019-09-26] VITALS: Ht 177.8 cm; Wt 103.5 kg
[~2019-09-26 19:39] MED LIST: LORA-405 PO; PROM25TA14 PO
--- OUTSIDE RECORDS SUMMARY | 2019-09-26 19:45 | XMS REPORT | Continuity of Care Document ---
Author Organization Unknown Address Unknown Phone Unavailable Allergies Active Description Code Type Severity Reaction Onset Reported/Identified Relationship to Patient Clinical Status Yes cefaclor [id number] Drug Allergy Unknown N/A 06/20/2017 Medications There is no data. Problems Date Dx Coded Attending Type Code Diagnosis Diagnosed By 06/20/2017 ROJELIO HOLLINS APRN Ot R07 .2 PRECORDIAL PAIN 06/20/2017 ROJELIO HOLLINS APRN Ot R07.89 OTHER CHEST PAIN 06/20/2017 ROJELIO HOLLINS APRN Ot X50.0XXA OVEREXERTION FROM STRENUOUS MOVEMENT OR 06/20/2017 ROJELIO HOLLINS APRN Ot Z88 .8 ALLERGY STATUS TO OTH DRUG/MEDS/BIOL SUB 06/22/2017 ROJELIO HOLLINS APRN Ot R07 .2 PRECORDIAL PAIN 06/22/2017 ROJELIO HOLLINS APRN Ot R07.89 OTHER CHEST PAIN 06/22/2017 ROJELIO HOLLINS APRN Ot X50.0XXA OVEREXERTION FROM STRENUOUS MOVEMENT OR 06/22/2017 ROJELIO HOLLINS APRN Ot Z88 .8 ALLERGY STATUS TO OTH DRUG/MEDS/BIOL SUB 09/26/2019 ROJELIO HOLLINS APRN Ot F41 .9 ANXIETY DISORDER, UNSPECIFIED 09/26/2019 ROJELIO HOLLINS APRN Ot R10.13 EPIGASTRIC PAIN 09/26/2019 ROJELIO HOLLINS APRN Ot R11 .2 NAUSEA WITH VOMITING, UNSPECIFIED 09/26/2019 ROJELIO HOLLINS APRN Ot R61 GENERALIZED HYPERHIDROSIS 09/26/2019 ROJELIO HOLLINS APRN Ot Z88 .1 ALLERGY STATUS TO OTHER ANTIBIOTIC AGENT 09/26/2019 ROJELIO HOLLINS APRN Ot Z90.89 ACQUIRED ABSENCE OF OTHER ORGANS 09/26/2019 ROJELIO HOLLINS APRN Ot F41 .9 ANXIETY DISORDER, UNSPECIFIED 09/26/2019 ROJELOI HOLLINS APRN Ot R10.13 EPIGASTRIC PAIN 09/26/2019 ROJELIO HOLLINS APRN Ot R11 .2 NAUSEA WITH VOMITING, UNSPECIFIED 09/26/2019 ROJELIO HOLLINS APRN Ot R61 GENERALIZED HYPERHIDROSIS 09/26/2019 ROJELIO HOLLINS APRN Ot Z88 .1 ALLERGY STATUS TO OTHER ANTIBIOTIC AGENT 09/26/2019 ROJELIO HOLLINS APRN Ot Z90.89 ACQUIRED ABSENCE OF OTHER ORGANS Procedures There is no data. Results Test [...] i.cardiac measurement (mass/v olume) < ng/mL <0.30 Complete blood count (CBC) with automate d white blood cell (WBC) differential - 09/24/19 16:08 Blood leukocytes automated count (number/volume) 11.6 10*3/uL 4.3-11.0 Blood erythrocytes automated count (number/volume) 5.60 10*6/uL 4.35-5.85 Venous blood hemoglobin measurement (mass/volume) 18.0 g/dL 13.3-17.7 Blood hematocrit (volume fraction) 50 % 40-54 Automated erythrocyte mean corpuscular volume 90 [ foz_us] 80-99 Automated erythrocyte mean corpuscular h emoglobin (mass per erythrocyte) 32 pg 25-34 Automated erythrocyte mean corpuscular h emoglobin concentration measurement (mass/volume) 36 g/dL 32-36 Automated erythrocyte distribution width ratio 12. 9 % 10.0- 14.5 Automated blood platelet count (count/volume) 299 10*3/uL 130-400 Automated blood platelet mean volume measurement 10.1 [foz_us] 7.4-10.4 Automated blood neutrophils/100 leukocytes 74 % 42-75 Automated blood lymphocytes/100 leukocytes 14 % 12-44 Blood monocytes/100 leukocytes 10 % 0-12 Automated blood eosinophils/100 leukocytes 2 % 0-10 Automated blood basophils/100 leukocytes 0 % 0-10 Blood neutrophils automated count (number/volume) 8.6 10*3 1.8-7.8 Blood lymphocytes automated count (number/volume) 1.6 10*3 1.0-4.0 Blood monocytes automated count (number/volume) 1. 1 10*3 0.0-1.0 Automated eosinophil count 0.3 10*3/uL 0 .0-0.3 Automated blood basophil count (count/volume) 0.0 10*3/uL 0.0-0.1 Comprehensive metabolic panel - 09/24/19 16:08 Serum or plasma sodium measurement (moles/volume) 140 mmol/L 135-145 Serum or plasma potassium measurement (moles/volume) 4.3 mmol/L 3.6-5.0 Serum or plasma chloride measurement (moles/volume) 105 mmol/L 98-107 Carbon dioxide 22 mmol/L 21-32 Serum or plasma anion gap determination (moles/volume) 13 mmol/L 5-14 Serum or plasma urea nitrogen measurement (mass/volume ) 9 mg/dL 7-18 Serum or plasma creatinine measurement (mass/volume) 0.89 mg/dL 0.60-1.30 Serum or plasma urea nitrogen/creatinine mass ratio 10 NRG Serum or plasma creatinine measurement w ith calculation of estimated glomerular filtration rate > NRG Serum or plasma glucose measurement (mass/volume) 126 mg/dL 70-105 Serum or plasma calcium measurement (mass/volume) 9.8 mg/dL 8.5-10.1 Serum or plasma total bilirubin measurement (mass/volu me) 0.5 mg/dL 0.1-1.0 Serum or plasma alkaline phosphatase marc surement (enzymatic activity/volume) 85 U/L 40-136 Serum or plasma aspartate aminotransfera se measurement (enzymatic activity/volume) 108 U/L 5-34 Serum or plasma alanine aminotransferase measurement (enzymatic activity/volume) 254 U/L 0-55 Serum or plasma protein measurement (mass/volume) 7.9 g/dL 6.4-8.2 Serum or plasma albumin measurement (mass/volume) 4.9 g/dL 3.2-4.5 Lipase - 09/24/19 16:08 Lipase 26 U/L 8-78 Serum or plasma C reactive protein measu rement (mass/volume) - 09/24/19 16:08 Serum or plasma C reactive protein measurement (mass/v olume) 0.45 mg/dL 0.00-0.50 Serum or plasma troponin i.cardiac measu rement (mass/volume) - 09/24/19 16:16 Serum or plasma troponin i.cardiac measurement (mass/v olume) < ng/mL <0.028 Erythrocyte sedimentation rate by matt gren method - 09/24/19 16:16 Erythrocyte sedimentation rate by westergren method 1 mm 0- 15 Encounters ACCT No. Visit Date/Time Discharge Status Pt. Type Provider Facility Loc./Unit Complaint [id number] 02/21/2016 19:16:04 02/21/2016 23:59: 59 CLS Outpatient Moshe Pressley [id number] 01/31/2016 18:11:05 01/31/2016 23:59: 59 CLS Outpatient Moshe Pressley [id number] 12/30/2015 10:59:54 12/30/2015 23:59: 59 CLS Outpatient Hedy Perry [id number] 11/15/2015 18:34:52 11/15/2015 23:59: 59 CLS Outpatient Moshe Pressley [id number] 09/24/2019 16:03:00 020 17:57:00 DIS Outpatient ROJELIO HOLLINS APRN Via [facility] ER VOMITING,CP, ABD PAIN [id number] 06/20/2017 20:31:00 018 22:13:00 DIS Emergency ROJELIO HOLLINS APRN Via [facility] ER CHEST PAIN [id number] 09/26/2019 19:41:[address] Emergency MALVIN PENA MD Via [facility] ER N/V,BACK PAIN
[2019-09-26] MEDS ORDERED: LORazepam INJ 2 MG/ML (ATIVAN) VIAL IVP PRN (20:00)
[2019-09-26] MEDS ORDERED: LACTATED RINGERS 1,000 ML IV SCH (20:00)
[2019-09-26] MEDS ORDERED: ONDANSETRON 4 MG/2 ML (SDV) Z0FRAN IVP ONE (20:00)
--- NOTE | 2019-09-26 20:02 | ED GI ---
General Chief Complaint: Abdominal/GI Problems Stated Complaint: N/V,BACK PAIN Source of Information: Patient Exam Limitations: No Limitations History of Present Illness Date Seen by Provider: September 26, 2019 Time Seen by Provider: 19:59 Initial Comments To ER with nausea vomiting and upper back pain as well as epigastric pain. He was seen here 2 days ago for the same, coincidently he had previously been drinking a sixpack of beer daily, (however, mother called and reported it was more like a 12-18 pack) daily. His last drink was the day before, he came in with diaphoresis anxiety nausea and vomiting. Differential included alcohol withdrawal versus gastroenteritis. He states that yesterday he felt quite a bit better and did drink some alcohol again yesterday afternoon and yesterday evening. Today, he's been unable to keep down the Phenergan or lorazepam that I prescribed and returns to ER for intolerable nausea and vomiting. Timing/Duration: 1-2 Days Severity/Quality: Cramping Location: Generalized Abdomen Radiation: No Radiation Activities at Onset: None Associated Symptoms: Nausea/Vomiting Allergies and Home Medications Allergies Coded Allergies: cefaclor (Unverified Adverse Reaction, Unknown, 06/20/17) Home Medications Lorazepam 1 Mg Tablet, 1 MG PO Q6H PRN for ANXIETY Prescribed by: ROJELIO HOLLINS on 09/24/191717 Promethazine HCl 25 Mg Tablet, 25 MG PO Q6H PRN for NAUSEA/VOMITING Prescribed by: ROJELIO HOLLINS on 09/24/191716 Patient Home Medication List Home Medication List Reviewed: Yes Review of Systems Review of Systems Constitutional: see HPI EENTM: No Symptoms Reported Respiratory: No Symptoms Reported Gastrointestinal: See HPI, Abdominal Pain, Diarrhea, Nausea, Vomiting Genitourinary: No Symptoms Reported Musculoskeletal: no symptoms reported Skin: no symptoms reported Psychiatric/Neurological: No Symptoms Reported Endocrine: No Symptoms Reported Hematologic/Lymphatic: No Symptoms Reported Past Fehyeua-Bukdpy-Obryjp Hx Patient Social History Type Used: Cigarettes 2nd Hand Smoke Exposure: Yes Recent Foreign Travel: No Contact w/Someone Who Travel: No Recent Hopitalizations: No Seasonal Allergies Seasonal Allergies: No Past Medical History Surgeries: Yes Tonsillectomy Respiratory: Yes (asthma as a child) Cardiac: Yes (heart murmur as a child) Neurological: No Genitourinary: No Gastrointestinal: No Musculoskeletal: No Endocrine: No HEENT: No Cancer: No Psychosocial: No Integumentary: No Blood Disorders: No Physical Exam Vital Signs Vital Signs - First Documented 09/26/19 19:56 Temp 35.5 Pulse 63 Resp 20 B/P (MAP) 152/90 (110) Pulse Ox 100 O2 Delivery Room Air Capillary Refill : Height/Weight/BMI Height: 5'10.00" Weight: 215lbs. oz. 97.468157ra; 29.00 BMI Method:Stated General Appearance: WD/WN, other (anxious appearing, shaking) Respiratory: normal breath sounds, no respiratory distress, no accessory muscle use Gastrointestinal: normal bowel sounds, soft, tenderness Extremities: normal range of motion, non-tender Neurologic/Psychiatric: alert, oriented x 3 Skin: normal color, cool Progress/Results/Core Measures Results/Orders Lab Results Laboratory Tests Test 09/26/19 19:58 Range/Units White Blood Count 13.6 H 4.3-11.0 10^3/uL Red Blood Count 5.81 4.35-5.85 10^6/uL Hemoglobin 18.6 H 13.3-17.7 G/DL Hematocrit 53 40-54 % Mean Corpuscular Volume 91 80-99 FL Mean Corpuscular Hemoglobin 32 25-34 PG Mean Corpuscular Hemoglobin Concent 35 32-36 G/DL Red Cell Distribution Width 13.0 10.0-14.5 % Platelet Count 336 130-400 10^3/uL Mean Platelet Volume 10.3 7.4-10.4 FL Neutrophils (%) (Auto) 86 H 42-75 % Lymphocytes (%) (Auto) 8 L 12-44 % Monocytes (%) (Auto) 6 0-12 % Eosinophils (%) (Auto) 0 0-10 % Basophils (%) (Auto) 0 0-10 % Neutrophils # (Auto) 11.7 H 1.8-7.8 X 10^3 Lymphocytes # (Auto) 1.0 1.0-4.0 X 10^3 Monocytes # (Auto) 0.8 0.0-1.0 X 10^3 Eosinophils # (Auto) 0.1 0.0-0.3 10^3/uL Basophils # (Auto) 0.0 0.0-0.1 10^3/uL Neutrophils % (Manual) 89 % Lymphocytes % (Manual) 1 % Monocytes % (Manual) 6 % Eosinophils % (Manual) 1 % Basophils % (Manual) 0 % Band Neutrophils 2 % Reactive Lymphocytes 1 % Blood Morphology Comment NORMAL Prothrombin Time 13.5 12.2-14.7 SEC INR Comment 1.0 0.8-1.4 Sodium Level 142 135-145 MMOL/L Potassium Level 4.2 3.6-5.0 MMOL/L Chloride Level 103 98-107 MMOL/L Carbon Dioxide Level 25 21-32 MMOL/L Anion Gap 14 5-14 MMOL/L Blood Urea Nitrogen 9 7-18 MG/DL Creatinine 0.94 0.60-1.30 MG/DL Estimat Glomerular Filtration Rate > 60 BUN/Creatinine Ratio 10 Glucose Level 129 H 70-105 MG/DL Calcium Level 10.2 H 8.5-10.1 MG/DL Corrected Calcium 8.5-10.1 MG/DL Total Bilirubin 0.7 0.1-1.0 MG/DL Aspartate Amino Transf (AST/SGOT) 82 H 5-34 U/L Alanine Aminotransferase (ALT/SGPT) 230 H 0-55 U/L Alkaline Phosphatase 88 40-136 U/L Total Protein 8.4 H 6.4-8.2 GM/DL Albumin 5.1 H 3.2-4.5 GM/DL Lipase 22 8-78 U/L Serum Alcohol < 10 <10 MG/DL My Orders Orders - ROJELIO HOLLINS APRN Alcohol (09/26/19 19:46) Cbc With Automated Diff (09/26/19 19:46) Comprehensive Metabolic Panel (09/26/19 19:46) Ua Culture If Indicated (09/26/19 19:46) Ed Iv/Invasive Line Start (09/26/19 19:46) Lorazepam Injection (Ativan Injection) (09/26/19 20:00) Lactated Ringers (Lr 1000 Ml Iv Solution (09/26/19 20:00) Ondansetron Injection (Zofran Injectio (09/26/19 20:00) Protime With Inr (09/26/19 19:58) Ct Abdomen/Pelvis W (09/26/19 19:58) Lipase (09/26/19 19:58) Manual Differential (09/26/19 19:58) Iohexol Injection (Omnipaque 350 Mg/Ml 1 (09/26/19 20:30) Received Contrast (Hold Metformin- Contr (09/26/19 20:30) Sodium Chloride Flush (Catheter Flush Sy (09/26/19 20:30) Ns (Ivpb) (Sodium Chloride 0.9% Ivpb Bag (09/26/19 20:30) Promethazine Injection (Phenergan Injec (09/26/19 20:45) Medications Given in ED Current Medications Medications Dose Ordered Sig/Arnol Route Start Time Stop Time Status Last Admin Dose Admin Iohexol 100 ml ONCE ONCE IV 09/26/19 20:30 09/26/19 20:31 DC 09/26/19 20:37 100 ML Lorazepam 1 mg ONCE PRN IVP 09/26/19 20:00 09/26/19 20:03 1 MG Ondansetron HCl 8 mg ONCE ONCE IVP 09/26/19 20:00 09/26/19 20:01 DC 09/26/19 20:03 8 MG Promethazine HCl 25 mg ONCE ONCE IVP 09/26/19 20:45 09/26/19 20:46 DC 09/26/19 20:42 25 MG Sodium Chloride 10 ml NEEDED PRN IV 09/26/19 20:30 09/26/19 20:37 10 ML Sodium Chloride 100 ml ONCE ONCE IV 09/26/19 20:30 09/26/19 20:31 DC 09/26/19 20:37 80 ML Vital Signs/I&O 09/26/19 19:56 Temp 35.5 Pulse 63 Resp 20 B/P (MAP) 152/90 (110) Pulse Ox 100 O2 Delivery Room Air Departure Communication (Admissions) Time/Spoke to Admitting Phy: 20:56 Spoke with Michael Masters, will admitBOB.. Spoke with the patient and his mother who both do not feel this is alcohol withdrawal related. Mother states that he has been drinking yesterday so she feels it would be unlikely that alcohol withdrawal is causing his symptoms. However I advised her that his alcohol level is less than 10 so he could certainly have symptoms. She states he felt well last night and well upon awakening this morning and got worse throughout the day today. He tells me he drank last night and that would explain why he felt better. Patient himself advises me he doesn't believe that because he has gone longer without alcohol for without the symptoms. Certainly possibility exists for other etiologies such as peptic ulcer, hepatitis a, gastroenteritis, but I do feel that alcohol withdrawal is at least in part causing his symptoms. Impression Primary Impression: Intractable vomiting with nausea Additional Impression: Alcohol withdrawal Disposition: ADMITTED INPATIENT Condition: Improved Admissions Decision to Admit Reason: Admit from ER (General) Decision to Admit/Date: September 26, 2019 Time/Decision to Admit Time: 20:56 Departure-Patient Inst. Referrals: MICHAEL MASTERS MD (PCP/Family) Primary Care Physician ROJELIO HOLLINS APRN September 26, 2019 20:01
[2019-09-26 20:04] LABS: BASOPHILS % (AUTO) 0 % (0-10); EOSINOPHILS # (AUTO) 0.1 10^3/uL (0.0-0.3); EOSINOPHILS % (AUTO) 0 % (0-10); HEMATOCRIT 53 % (40-54); HEMOGLOBIN 18.6 G/DL (13.3-17.7); LYMPHOCYTES % (AUTO) 8 % (12-44); MEAN CORPUSCULAR HEMOGLOBIN 32 PG (25-34); MEAN CORPUSCULAR HGB CONC 35 G/DL (32-36); MEAN CORPUSCULAR VOLUME 91 FL (80-99); MEAN PLATELET VOLUME 10.3 FL (7.4-10.4); MONOCYTES # (AUTO) 0.8 X 10^3 (0.0-1.0); MONOCYTES % (AUTO) 6 % (0-12); NEUTROPHILS # (AUTO) 11.7 X 10^3 (1.8-7.8); NEUTROPHILS % (AUTO) 86 % (42-75); PLATELET COUNT 336 10^3/uL (130-400); WHITE BLOOD COUNT 13.6 10^3/uL (4.3-11.0)
[2019-09-26 20:15] LABS: PROTHROMBIN TIME PATIENT 13.5 SEC (12.2-14.7)
[2019-09-26 20:16] LABS: BAND NEUTROPHILS 2 %; BASOPHILS % (MANUAL) 0 %; EOSINOPHILS % (MANUAL) 1 %; LYMPHOCYTES % (MANUAL) 1 %; MONOCYTES % (MANUAL) 6 %; NEUTROPHILS % (MANUAL) 89 %; RBC MORPH NORMAL; REACTIVE LYMPHOCYTES 1 %
[2019-09-26 20:24] LABS: ALANINE AMINOTRANSFERASE 230 U/L (0-55); ALBUMIN 5.1 GM/DL (3.2-4.5); ALKALINE PHOSPHATASE 88 U/L (40-136); BILIRUBIN,TOTAL 0.7 MG/DL (0.1-1.0); BUN/CREATININE RATIO 10; CALCIUM 10.2 MG/DL (8.5-10.1); CARBON DIOXIDE 25 MMOL/L (21-32); CHLORIDE 103 MMOL/L (98-107); CREATININE SERUM 0.94 MG/DL (0.60-1.30); GFR ESTIMATED > 60; GLUCOSE 129 MG/DL (70-105); LIPASE 22 U/L (8-78); POTASSIUM 4.2 MMOL/L (3.6-5.0); SODIUM 142 MMOL/L (135-145); TOTAL PROTEIN 8.4 GM/DL (6.4-8.2)
[2019-09-26] MEDS ORDERED: IOHEXOL 350 MG/ML 100 ML (OMNIPAQUE 350) VIAL IV ONE (20:30)
[2019-09-26] MEDS ORDERED: NS 100 ML (IVPB) BAG IV ONE (20:30)
[2019-09-26] MEDS ORDERED: HOLD METFORMIN - RECEIVED CONTRAST 20 ML VIAL IV SCH (20:30)
[2019-09-26] MEDS ORDERED: CATHETER FLUSH 10 ML SYR IV PRN (20:30)
--- NOTE | 2019-09-26 20:43 | Diagnostic Imaging Report ---
PROCEDURE: CT abdomen and pelvis with contrast. TECHNIQUE: Multiple contiguous axial images were obtained through the abdomen and pelvis after administration of intravenous contrast. Auto Exposure Controls were utilized during the CT exam to meet ALARA standards for radiation dose reduction. INDICATION: Nausea and vomiting. FINDINGS: Lung bases are clear. There is fatty infiltration of the liver. The portal vein is patent. The gallbladder is unremarkable. Common duct is not dilated. The pancreas appears normal. The spleen is not enlarged. Kidneys and adrenals appear normal. Aorta appears normal. The appendix is normal. Small bowel is not dilated. The colon appears normal. IMPRESSION: Hepatic steatosis. No acute abnormality is seen in the abdomen. There is no evidence of obstruction. Dictated by: Dictated on workstation # [id number]
[2019-09-26] MEDS ORDERED: PROMETHAZINE INJ 25 MG/ML (PHENERGAN) AMP IVP ONE (20:45)
[2019-09-26] MEDS ORDERED: LIDOCAINE 2% VISCOUS 15 ML UDC PO ONE (21:00)
[2019-09-26] MEDS ORDERED: ANTACID SUSP 30 ML UDC (MYLANTA) PO ONE (21:00)
[2019-09-26] MEDS ORDERED: LORazepam INJ 2 MG/ML (ATIVAN) VIAL IVP ONE (21:00)
--- OUTSIDE RECORDS SUMMARY | 2019-09-26 21:08 | XMS REPORT | Continuity of Care Document ---
Author Organization Unknown Address Unknown Phone Unavailable Allergies Active Description Code Type Severity Reaction Onset Reported/Identified Relationship to Patient Clinical Status Yes cefaclor [id number] Drug Allergy Unknown N/A 06/20/2017 Medications There [...] by westergren method 1 mm 0- 15 Complete blood count (CBC) with automate d white blood cell (WBC) differential - 09/26/19 19:58 Blood leukocytes automated count (number/volume) 13.6 10*3/uL 4.3-11.0 Blood erythrocytes automated count (number/volume) 5.81 10*6/uL 4.35-5.85 Venous blood hemoglobin measurement (mass/volume) 18.6 g/dL 13.3-17.7 Blood hematocrit (volume fraction) 53 % 40-54 Automated erythrocyte mean corpuscular volume 91 [ foz_us] 80-99 Automated erythrocyte mean corpuscular h emoglobin (mass per erythrocyte) 32 pg 25-34 Automated erythrocyte mean corpuscular h emoglobin concentration measurement (mass/volume) 35 g/dL 32-36 Automated erythrocyte distribution width ratio 13. 0 % 10.0- 14.5 Automated blood platelet count (count/volume) 336 10*3/uL 130-400 Automated blood platelet mean volume measurement 10.3 [foz_us] 7.4-10.4 Automated blood neutrophils/100 leukocytes 86 % 42-75 Automated blood lymphocytes/100 leukocytes 8 % 12-44 Blood monocytes/100 leukocytes 6 % 0-12 Automated blood eosinophils/100 leukocytes 0 % 0-10 Automated blood basophils/100 leukocytes 0 % 0-10 Blood neutrophils automated count (number/volume) 11.7 10*3 1.8-7.8 Blood lymphocytes automated count (number/volume) 1.0 10*3 1.0-4.0 Blood monocytes automated count (number/volume) 0. 8 10*3 0.0-1.0 Automated eosinophil count 0.1 10*3/uL 0 .0-0.3 Automated blood basophil count (count/volume) 0.0 10*3/uL 0.0-0.1 PT panel in platelet poor plasma by coag ulation assay - 09/26/19 19:58 Prothrombin time (PT) in platelet poor plasma by coagu lation assay 13.5 s 12.2-14.7 INR in platelet poor plasma or blood by coagulation as say 1.0 0.8-1.4 Manual absolute plasma cell count - 08/29 01/17 19:58 Blood monocytes/100 leukocytes 6 % NR Manual blood segmented neutrophils/100 leukocytes 89 % NRG Blood band neutrophils/100 leukocytes 2 % NRG Manual blood lymphocytes/100 leukocytes 1 % NRG Manual eosinophils/100 leukocytes in nose 1 % NRG Manual blood basophils/100 leukocytes 0 % NRG Blood lymphocytes variant/100 leukocytes 1 % NRG Blood erythrocyte morphology finding identification NORMAL [facility] Comprehensive metabolic panel - 09/26/19 19:58 Serum or plasma sodium measurement (moles/volume) 142 mmol/L 135-145 Serum or plasma potassium measurement (moles/volume) 4.2 mmol/L 3.6-5.0 Serum or plasma chloride measurement (moles/volume) 103 mmol/L 98-107 Carbon dioxide 25 mmol/L 21-32 Serum or plasma anion gap determination (moles/volume) 14 mmol/L 5-14 Serum or plasma urea nitrogen measurement (mass/volume ) 9 mg/dL 7-18 Serum or plasma creatinine measurement (mass/volume) 0.94 mg/dL 0.60-1.30 Serum or plasma urea nitrogen/creatinine mass ratio 10 NRG Serum or plasma creatinine measurement w ith calculation of estimated glomerular filtration rate > NRG Serum or plasma glucose measurement (mass/volume) 129 mg/dL 70-105 Serum or plasma calcium measurement (mass/volume) 10.2 mg/dL 8.5-10.1 Serum or plasma total bilirubin measurement (mass/volu me) 0.7 mg/dL 0.1-1.0 Serum or plasma alkaline phosphatase marc surement (enzymatic activity/volume) 88 U/L 40-136 Serum or plasma aspartate aminotransfera se measurement (enzymatic activity/volume) 82 U/L 5-34 Serum or plasma alanine aminotransferase measurement (enzymatic activity/volume) 230 U/L 0-55 Serum or plasma protein measurement (mass/volume) 8.4 g/dL 6.4-8.2 Serum or plasma albumin measurement (mass/volume) 5.1 g/dL 3.2-4.5 Lipase - 09/26/19 19:58 Lipase 22 U/L 8-78 Serum or plasma ethanol measurement (mas s/volume) - 09/26/19 19:58 Serum or plasma ethanol measurement (mass/volume) < mg/dL <10 Encounters ACCT No. Visit Date/Time Discharge Status Pt. Type Provider Facility Loc./Unit Complaint [id number] 02/21/2016 19:16:04 02/21/2016 23:59: 59 CLS Outpatient Moshe Pressley [id number] 01/31/2016 18:11:05 01/31/2016 23:59: 59 CLS Outpatient Moshe Pressley [id number] 12/30/2015 10:59:54 12/30/2015 23:59: 59 CLS Outpatient Hedy Perry [id number] 11/15/2015 18:34:52 11/15/2015 23:59: 59 CLS Outpatient Moshe Pressley [id number] 09/24/2019 16:03:00 020 17:57:00 DIS Outpatient ROJELIO HOLLINS APRN [facility] ER VOMITING,CP, ABD PAIN [id number] 06/20/2017 20:31:00 018 22:13:00 DIS Emergency ROJELIO HOLLINS APRN [facility] ER CHEST PAIN [id number] 09/26/2019 20:53:[address] Inpatient SONAM TAMEZ, GIOVANNA Cancino [facility] ICU INTRACTABLE N/V,ETOH WITHDRA WL
--- NOTE | 2019-09-26 21:30 | NUR ---
VO OBTAINED FOR UA UPON ADMISSION FROM ROJELIO HOLLINS APRN. PATIENT HAS BEEN UNABLE TO URINATE TO PROVIDE A SAMPLE HERE IN THE ER. PROVIDER AWARE.
[2019-09-26 21:45] VITALS: BP 171/121
[2019-09-26] MEDS ORDERED: 1/2 NS IV SOLUTION 1,000 ML IV PRN (21:59)
[2019-09-26 22:00] VITALS: BP 146/91
[2019-09-26] MEDS ORDERED: ONDANSETRON 4 MG (ZOFRAN) ORAL DISSOLVE TAB SL PRN (22:00)
[2019-09-26] MEDS ORDERED: SENNA W/DOCUSATE (SENOKOT S) TABLET PO PRN (22:00)
[2019-09-26] MEDS ORDERED: LORazepam INJ 2 MG/ML (ATIVAN) VIAL IV PRN (22:00)
[2019-09-26] MEDS ORDERED: PROMETHAZINE INJ 25 MG/ML (PHENERGAN) AMP IV PRN (22:00)
[2019-09-26] MEDS ORDERED: LORazepam 1 MG (ATIVAN) TAB PO PRN (22:00)
[2019-09-26] MEDS ORDERED: ONDANSETRON 4 MG/2 ML (SDV) Z0FRAN IV PRN (22:00)
[2019-09-26] MEDS ORDERED: D5 1/2 NS 1000 ML IV SOLUTION 1,000 ML IV PRN (22:00)
[2019-09-26] MEDS ORDERED: LORazepam INJ 2 MG/ML (ATIVAN) VIAL IM/IV PRN (22:00)
[2019-09-26] MEDS ORDERED: ANTACID SUSP 30 ML UDC (MYLANTA) PO PRN (22:00)
[2019-09-26 22:15] VITALS: BP 133/123
[2019-09-26 22:30] VITALS: BP 140/74
[2019-09-26] MEDS ORDERED: PANTOPRAZOLE 40 MG (PROTONIX) TAB PO ONE (22:38)
[2019-09-26 22:45] VITALS: BP 148/94
[2019-09-26] MEDS: PANTOPRAZOLE 40 MG (PROTONIX) VIAL IV SCH (22:54)
[2019-09-26] MEDS: D5 1/2 NS W/KCL 20 MEQ/L 1,000 ML IV SCH (22:55)
[2019-09-26 23:00] VITALS: BP 112/79
[2019-09-26 23:04] LABS: BILIRUBIN,URINE NEGATIVE (NEGATIVE); CLARITY,URINE SL CLOUDY; COLOR,URINE YELLOW; GLUCOSE, URINE (UA) NEGATIVE (NEGATIVE); KETONES,URINE 1+ (NEGATIVE); LEUKOCYTE ESTERASE ,URINE NEGATIVE (NEGATIVE); NITRITE,URINE NEGATIVE (NEGATIVE); PH,URINE 8.5 (5-9); PROTEIN,URINE NEGATIVE (NEGATIVE)
[2019-09-26 23:29] LABS: BACTERIA,URINE NEGATIVE /HPF; SQUAMOUS EPITHELIAL CELL,UR RARE /HPF
[2019-09-27] VITALS: BP 135/87
[2019-09-27 01:00] VITALS: BP 139/76
[2019-09-27 02:00] VITALS: BP 116/64
[2019-09-27 03:36] LABS: BASOPHILS % (AUTO) 0 % (0-10); EOSINOPHILS # (AUTO) 0.1 10^3/uL (0.0-0.3); EOSINOPHILS % (AUTO) 0 % (0-10); HEMATOCRIT 46 % (40-54); LYMPHOCYTES # (AUTO) 1.1 X 10^3 (1.0-4.0); LYMPHOCYTES % (AUTO) 9 % (12-44); MEAN CORPUSCULAR HEMOGLOBIN 32 PG (25-34); MEAN CORPUSCULAR HGB CONC 35 G/DL (32-36); MEAN CORPUSCULAR VOLUME 92 FL (80-99); MEAN PLATELET VOLUME 10.9 FL (7.4-10.4); MONOCYTES # (AUTO) 0.9 X 10^3 (0.0-1.0); MONOCYTES % (AUTO) 7 % (0-12); NEUTROPHILS # (AUTO) 10.7 X 10^3 (1.8-7.8); NEUTROPHILS % (AUTO) 84 % (42-75); PLATELET COUNT 273 10^3/uL (130-400); WHITE BLOOD COUNT 12.8 10^3/uL (4.3-11.0)
[2019-09-27 03:44] LABS: ALBUMIN 4.2 GM/DL (3.2-4.5); CHLORIDE 103 MMOL/L (98-107); POTASSIUM 3.8 MMOL/L (3.6-5.0); SODIUM 140 MMOL/L (135-145)
[2019-09-27 03:45] LABS: CALCIUM 9.1 MG/DL (8.5-10.1)
[2019-09-27 03:46] LABS: GLUCOSE 131 MG/DL (70-105); TOTAL PROTEIN 6.8 GM/DL (6.4-8.2)
[2019-09-27 03:47] LABS: CARBON DIOXIDE 26 MMOL/L (21-32)
[2019-09-27 03:48] LABS: BILIRUBIN,TOTAL 0.6 MG/DL (0.1-1.0)
[2019-09-27 03:49] LABS: ALKALINE PHOSPHATASE 78 U/L (40-136); PHOSPHORUS 2.3 MG/DL (2.3-4.7)
[2019-09-27 03:50] LABS: GFR ESTIMATED > 60
[2019-09-27 03:51] LABS: BUN/CREATININE RATIO 9
[2019-09-27 03:52] LABS: INR 1.1 (0.8-1.4); MAGNESIUM 2.3 MG/DL (1.6-2.4); PROTHROMBIN TIME PATIENT 14.3 SEC (12.2-14.7)
[2019-09-27 03:53] LABS: ALANINE AMINOTRANSFERASE 170 U/L (0-55)
[2019-09-27] MEDS: D5 1/2 NS W/KCL 20 MEQ/L 1,000 ML IV SCH ×2 (05:04→08:12)
[2019-09-27 06:00] VITALS: BP 146/33
[2019-09-27] MEDS: PANTOPRAZOLE 40 MG (PROTONIX) VIAL IV SCH (08:12)
--- NOTE | 2019-09-27 08:25 | History & Physical ---
History of Present Illness History of Present Illness Reason for visit/HPI 29 yo M admitted for intractable nausea and vomiting attributed currently to etoh withdrawal. It may be also an acute gastroenteritis. He has been drinking around a 12 pack daily for past few weeks. Last drink was 2 nights ago. He has been upset recently about his 2 yo male dog being hit by a vehicle. He travels for work and states he is suppose to be in [place] now. He as seen at the ER a few days ago for similar issue and was discharged home- felt better the next day but then yesterday the nausea/vomiting returned. Etoh level <10. We will admit him for etoh withdrawal and continue to evaluate for other etiologies. LFTs improved overnight. No emesis since yesterday. Date of Admission September 26, 2019 at 20:53 Date Seen by a Provider: September 27, 2019 Time Seen by a Provider: 07:35 I consulted on this patient on 09/27/19 08:20 Attending Physician Michael Masters MD Admitting Physician Michael Masters MD Consult Allergies and Home Medications Allergies Coded Allergies: cefaclor (Unverified Adverse Reaction, Unknown, 06/20/17) Home Medications Lorazepam 1 Mg Tablet, 1 MG PO Q6H PRN for ANXIETY Prescribed by: ROJELIO HOLLINS on 09/24/19 1718 Pantoprazole Sodium 40 Mg Tablet.dr, 40 MG PO DAILY Prescribed by: MICHAEL MASTERS on 09/27/19 1552 Promethazine HCl 25 Mg Tablet, 25 MG PO Q6H PRN for NAUSEA/VOMITING Prescribed by: ROJELIO HOLLINS on 09/24/19 1717 Patient Home Medication List Home Medication List Reviewed: Yes Past Wzuhink-Vgraau-Weucfb Hx Patient Social History Alcohol Use: Regular Use Alcohol Beverage of Choice: Beer Recreational Drug Use: No Type Used: Cigarettes 2nd Hand Smoke Exposure: Yes Recent Foreign Travel: No Contact w/other who traveled: No Recent Hopitalizations: No Recent Infectious Disease Expo: No Seasonal Allergies Seasonal Allergies: No Surgeries Yes Tonsillectomy Respiratory Yes (asthma as a child) Cardiovascular Yes (heart murmur as a child) Neurological No Genitourinary No Gastrointestinal No Musculoskeletal No Endocrine History of Endocrine Disorders: No HEENT History of HEENT Disorders: No Cancer No Psychosocial History of Psychiatric Problem: No Integumentary History of Skin or Integumenta: No Blood Transfusions History of Blood Disorders: No Family Medical History Family Hx: Diabetes mellitus (TYPE 1) G8 BROTHER (TYPE 1 ) G8 BROTHER (TYPE 1) GRANDMA - MOMS SIDE (TYPE 2 ) gRANDPA - MOMS SIDE (TYPE 1) Review of Systems Review of Systems General: No Chills, No Night Sweats HEENT: No Head Aches, No Visual Changes Pulmonary: No Dyspnea, No Cough Cardiovascular: No: Chest Pain, Palpitations Gastrointestinal: Nausea; No: Vomiting Genitourinary: No Dysuria, No Frequency Musculoskeletal: No: neck pain, shoulder pain Neurological: No: Weakness Physical Exam Vital Signs Vital Signs - First Documented 09/26/19 19:56 Temp 35.5 Pulse 63 Resp 20 B/P (MAP) 152/90 (110) Pulse Ox 100 O2 Delivery Room Air Capillary Refill : Less Than 3 Seconds Height, Weight, BMI Height: 5'10.00" Weight: 215lbs. oz. 97.361796tq; 32.00 BMI Method:Stated General Appearance: No Apparent Distress, WD/WN HEENT: PERRL/EOMI Neck: Full Range of Motion, Non Tender, Supple Respiratory: Chest Non Tender, Lungs Clear, Normal Breath Sounds, No Accessory Muscle Use, No Respiratory Distress Cardiovascular: Regular Rate, Rhythm, No Edema Gastrointestinal: Normal Bowel Sounds, Non Tender, Soft Rectal: Deferred Back: No CVA Tenderness, No Vertebral Tenderness Extremity: Non Tender, No Calf Tenderness Neurologic/Psychiatric: Alert, Oriented x3, No Motor/Sensory Deficits, Normal Mood/Affect Skin: Normal Color, Warm/Dry Assessment/Plan Assessment/Plan Admission Dx intractable nausea and vomiting Admission Status: Inpatient Order (span 2 midnights) Reason for Inpatient Admission: since he was seen in the ER earlier in the week and presented a second time- it would benefit him to be evaluated the next 2 days to make sure it is only etoh withdrawal that is causing his symptoms. Assessment and Plan [facility] protocol protonix for possible ulcer treatment and GI ppx. LFTs improving will continue to reassess. Patient reported that he is feeling better/near normal this afternoon and would like to be discharged to home. Will send him home on PPI. Recommend he stop his etoh drinking and use the lorazepam as needed for anxiety/withdrawal symptoms. Problems: (1) Intractable vomiting with nausea (2) Alcohol withdrawal (3) Alcohol abuse (4) Intractable nausea and vomiting (5) GERD without esophagitis Admission Dx intractable nausea/vomiting alcohol withdrawal/abuse GERD Griefing loss of a dog Final Diagnosis intractable nausea/vomiting alcohol withdrawal/abuse GERD Griefing loss of a dog Will refer to [facility] for further work up on his intractable nausea/vomiting, GERD symptoms and have them consider an EGD, evaluate if there has been any damage from his etoh usage. Clinical Quality Measures DVT/VTE Risk/Contraindication: Risk Factor Score Per Nursin RFS Level Per Nursing on Admit: 2=Moderate Copy Copies To 1: REKHA TEE DO Copies To 2: EFREN WANG DO MICHAEL MASTERS MD September 27, 2019 08:25
[2019-09-27] MEDS ORDERED: THIAMINE INJECTION 100 MG, FOLIC ACID INJECTION 1 MG, MAGNESIUM SULFATE 2 GM, VITAMIN M... IV SCH ×5 (09:00)
[2019-09-27] MEDS ORDERED: PANT40TA2 PO (15:52)
--- NOTE | 2019-09-27 15:58 | Discharge Summary ---
Discharge Summary Hospital Course Was the Problem List Reviewed?: Yes Problems/Dx: (1) Intractable vomiting with nausea Status: Resolved (2) Alcohol withdrawal Status: Acute Hospital Course Date of Admission: September 26, 2019 at 20:53 Admission Diagnosis : Family Physician/Provider: Michael Masters MD Date of Discharge: 09/27/19 Discharge Diagnosis: [ ] Hospital Course: [ ] Labs and Pending Lab Test: Laboratory Tests 09/26/19 19:58: White Blood Count 13.6H, Red Blood Count 5.81, Hemoglobin 18.6H, Hematocrit 53, Mean Corpuscular Volume 91, Mean Corpuscular Hemoglobin 32, Mean Corpuscular Hemoglobin Concent 35, Red Cell Distribution Width 13.0, Platelet Count 336, Mean Platelet Volume 10.3, Neutrophils (%) (Auto) 86H, Lymphocytes (%) (Auto) 8L , Monocytes (%) (Auto) 6, Eosinophils (%) (Auto) 0, Basophils (%) (Auto) 0, Neutrophils # (Auto) 11.7H, Lymphocytes # (Auto) 1.0, Monocytes # (Auto) 0.8, Eosinophils # (Auto) 0.1, Basophils # (Auto) 0.0, Neutrophils % (Manual) 89, Lymphocytes % (Manual) 1, Monocytes % (Manual) 6, Eosinophils % (Manual) 1, Basophils % (Manual) 0, Band Neutrophils 2, Reactive Lymphocytes 1, Blood Morphology Comment NORMAL, Prothrombin Time 13.5, INR Comment 1.0, Sodium Level 142, Potassium Level 4.2, Chloride Level 103, Carbon Dioxide Level 25, Anion Gap 14, Blood Urea Nitrogen 9, Creatinine 0.94, Estimat Glomerular Filtration Rate > 60, BUN/Creatinine Ratio 10, Glucose Level 129H, Calcium Level 10.2H, Corrected Calcium , Total Bilirubin 0.7, Aspartate Amino Transf (AST/SGOT) 82H, Alanine Aminotransferase (ALT/SGPT) 230H, Alkaline Phosphatase 88, Total Protein 8.4H, Albumin 5.1H, Lipase 22, Serum Alcohol < 10, Hepatitis A IgM Antibody [Pending], Hepatitis B Surface Antigen [Pending], Hepatitis B Core IgM Antibody [Pending], Hepatitis C Antibody [Pending] 09/26/19 22:55: Urine Color YELLOW, Urine Clarity SL CLOUDY, Urine pH 8.5, Urine Specific [place] 1.010L, Urine Protein NEGATIVE, Urine Glucose (UA) NEGATIVE, Urine Ketones 1+H, Urine Nitrite NEGATIVE, Urine Bilirubin NEGATIVE, Urine Urobilinogen 0.2, Urine Leukocyte Esterase NEGATIVE, Urine RBC (Auto) NEGATIVE, Urine RBC NONE, Urine WBC NONE, Urine Squamous Epithelial Cells RARE, Urine Crystals NONE, Urine Bacteria NEGATIVE, Urine Casts NONE, Urine Mucus SMALLH, Urine Culture Indicated NO 09/27/19 02:35: White Blood Count 12.8H, Red Blood Count 5.07, Hemoglobin 16.0, Hematocrit 46, Mean Corpuscular Volume 92, Mean Corpuscular Hemoglobin 32, Mean Corpuscular Hemoglobin Concent 35, Red Cell Distribution Width 13.0, Platelet Count 273, Mean Platelet Volume 10.9H, Neutrophils (%) (Auto) 84H, Lymphocytes (%) (Auto) 9L, Monocytes (%) (Auto) 7, Eosinophils (%) (Auto) 0, Basophils (%) (Auto) 0, Neutrophils # (Auto) 10.7H, Lymphocytes # (Auto) 1.1, Monocytes # (Auto) 0.9, Eosinophils # (Auto) 0.1, Basophils # (Auto) 0.0, Prothrombin Time 14.3, INR Comment 1.1, Sodium Level 140, Potassium Level 3.8, Chloride Level 103, Carbon Dioxide Level 26, Anion Gap 11, Blood Urea Nitrogen 7, Creatinine 0.80, Estimat Glomerular Filtration Rate > 60, BUN/Creatinine Ratio 9, Glucose Level 131H, Calcium Level 9.1, Corrected Calcium 8.9, Total Bilirubin 0.6, Aspartate Amino Transf (AST/SGOT) 55H, Alanine Aminotransferase (ALT/SGPT) 170H, Alkaline Phosph atase 78, Total Protein 6.8, Albumin 4.2, Mean Blood Glucose [Pending], Hemoglobin A1c [Pending], Phosphorus Level 2.3, Magnesium Level 2.3 Home Meds Active Protonix (Pantoprazole Sodium) 40 Mg Tablet.dr 40 Mg PO DAILY Ativan (Lorazepam) 1 Mg Tablet 1 Mg PO Q6H PRN 7 Days Promethazine Tablet (Promethazine HCl) 25 Mg Tablet 25 Mg PO Q6H PRN Assessment/Pt Instructions you may take the 1 tablet lorazepam for anxiety. If you do not feel anxious, t shara 1/2 tablet daily for the next 5 days and then as needed thereafter. -avoid alcoholic beverages. Follow up with [facility] in 2 weeks. Discharge Instructions Discharge Diet: Regular Diet Activity as Tolerated: Yes Pneumonia Vaccine Order Indica: Yes Discharge Physical Examination Vital Signs Vital Signs Date Time Temp Pulse Resp B/P (MAP) Pulse Ox O2 Delivery O2 Flow Rate FiO2 09/27/19 13:01 68 09/27/19 12:00 Room Air 09/27/19 11:44 37.6 09/27/19 08:00 9 94 General Appearance: No Apparent Distress HEENT: PERRL/EOMI Respiratory: Chest Non Tender, Lungs Clear, Normal Breath Sounds, No Accessory Muscle Use, No Respiratory Distress Cardiovascular: Regular Rate, Rhythm Gastrointestinal: Non Tender, Soft Extremity: Non Tender, No Calf Tenderness Skin: Warm/Dry Neurologic/Psychiatric: Alert, Oriented x3 Allergies: Coded Allergies: cefaclor (Unverified Adverse Reaction, Unknown, 06/20/17) Discharge Summary Date of Admission September 26, 2019 at 20:53 Date of Discharge Discharge Diagnosis (1) Intractable vomiting with nausea Status: Resolved (2) Alcohol withdrawal Status: Acute Clinical Quality Measures DVT/VTE Risk/Contraindication: Risk Factor Score Per Nursin RFS Level Per Nursing on Admit: 2=Moderate MICHAEL MASTERS MD September 27, 2019 15:58
--- NOTE | 2019-09-27 16:32 | NUR ---
PT given discharge instructions at this time. Verbalized follow up with Dr. Gomez would need to be scheduled in a few weeks on Sunday due to weekend. Prescription information also given at this time. IV removed from left AC space. No bleeding noted, cath tip intact. Personal belongings bag given to pt also at this time. Pt is currently awaiting transportation home at this time.
--- NOTE | 2019-09-27 16:52 | NUR ---
ESTEFANI KOVACS demonstrates understanding of discharge instructions and accurately returns instructions upon questioning. Copy of Post-Discharge Instructions and Medication Discharge Instructions given to patient. ESTEFANI KOVACS is able to manage continuing needs after discharge. Patients belongings returned to patient. Skin dry and intact; no breakdown noted. Patient discharged from [facility] on 09/27/2019 at 1650 . ESTEFANI KOVACS left floor via wheelchair, accompanied by this RN.
[2019-09-29 15:31] LABS: HEPATITIS C ANTIBODY C Non-Reactive (Non-Reactive)
== END 2019-09-27 16:50 | disposition home or self-care (01) | DRG 897 ==
LOC: EDUNIT# 19:39 → ER 19:41 → ICU 20:53
PROVIDERS: ADMIT Family Medicine; ATTEND Family Medicine
DX: F10.230 Alcohol dependence with withdrawal, uncomplicated (principal); R11.2 Nausea with vomiting, unspecified
CPT/HCPCS: 36415; 74177; 80053; 80074; 80320; 81000; 83036; 83690; 83735; 84100; 85007; 85025; 85027; 85610; 87081; 96361; 96374; 96375; 96376; G0378

== ENCOUNTER 2019-10-23 05:35 | Outpatient (RCR) | payer OTHER ==
[~2019-10-23] VITALS: Ht 177.8 cm; Wt 105.5 kg
[~2019-10-23 05:35] MED LIST changes: +CITA20TA9 PO; +PANT40TA2 PO; +PANT40TA3 PO
== END 2019-12-16 13:54 | disposition home or self-care (01) ==
LOC: PREOP 05:35
PROVIDERS: ATTEND Surgery
DX: Z01.818 Encounter for other preprocedural examination (principal)

== ENCOUNTER 2019-12-19 05:42 | Outpatient (RCR) | payer OTHER ==
[~2019-12-19] VITALS: Ht 177.8 cm; Wt 105.5 kg
== END 2019-12-19 09:39 | disposition home or self-care (01) ==
LOC: PREOP 05:42
PROVIDERS: ATTEND Surgery
DX: Z01.818 Encounter for other preprocedural examination (principal); Z01.812 Encounter for preprocedural laboratory examination; Z12.11 Encounter for screening for malignant neoplasm of colon; K21.9 Gastro-esophageal reflux disease without esophagitis; Z20.828 Contact with and (suspected) exposure to other viral communicable diseases
CPT/HCPCS: 87635

== ENCOUNTER 2019-12-22 08:47 | Day surgery (SDC) | payer OTHER ==
[~2019-12-22] VITALS: Ht 177.8 cm; Wt 105.5 kg
[2019-12-22] VITALS (8 sets, daily range): BP systolic 99–126; BP diastolic 55–84
[2019-12-22] MEDS ORDERED: LACTATED RINGERS 1,000 ML IV ONE (09:00)
[2019-12-22] MEDS ORDERED: LACTATED RINGERS 1,000 ML IV STA (09:00)
[2019-12-22] MEDS ORDERED: HURRICAINE EXT TUBE (BENZOCAINE) XX PRN (09:00)
[2019-12-22] MEDS ORDERED: PROPOFOL INJECTION 50 ML IV ONE ×2 (09:35→09:53)
[2019-12-22] MEDS ORDERED: MIDAZOLAM 2 MG/2 ML (VERSED) VIAL ONE (09:35)
[2019-12-22] MEDS ORDERED: ONDANSETRON 4 MG/2 ML (SDV) Z0FRAN ONE (09:36)
--- NOTE | 2019-12-22 10:17 | Progress Note-Post Operative ---
Post-Operative Progess Note Surgeon (s)/Deputy Sheriff Chief (s) Surgeon REKHA TEE DO Deputy Sheriff Chief: Raymond Guerrero, MSIII Pre-Operative Diagnosis Heartburn, Abd pain, N/V, rectal bleed Post-Operative Diagnosis Gastritis Polyps internal hemorrhoids Procedure & Operative Findings Date of Procedure 12/22/19 Procedure Performed/Findings EGD with bx Colon with hot bx Anesthesia Type IV sedation by DRILL SHARPENER OPERATOR Estimated Blood Loss Estimated blood loss (mL): scant Specimens/Packing Specimens Removed antral bx body of stomach bx GE jxn bx Polyp desc colon x 2 REKHA TEE DO Dec 22, 2019 10:17
--- NOTE | 2019-12-22 10:19 | Endoscopy Discharge Instruct ---
Endo Procedure/Findings Findings 1.: Gastritis 2.: Polyp 3.: Internal Hemorrhoids Discharge Instructions - Activity: You might feel a little sleepy until tomorrow. This is due to the medicine you received to relax you. Until tomorrow, you should: NOT drive a car, operate machinery or power tools. NOT drink any alcoholic beverages. NOT make any important decisions or sign importortant papers. Do not return to work until tomorrow, unless otherwise instructed. Resume previous activities tomorrow. Diet: Start by taking liquids. If you tolerate liquids, advance to solid food. make an appt for one week 1.: EGD in 3 years Notify Physician - If you experience excessive bleeding, unusual abdominal pain, fever, or chest pain, contact your doctor immediately. REKHA TEE DO Dec 22, 2019 10:19
--- NOTE | 2019-12-22 10:38 | Anesthesia-General Post-Op ---
MAC Patient Condition Mental Status/LOC: Same as Preop Cardiovascular: Satisfactory Nausea/Vomiting: Absent Respiratory: Satisfactory Pain: Controlled Complications: Absent Post Op Complications Complications None Follow Up Care/Instructions Patient Instructions None needed. Anesthesiology Discharge Order Discharge Order Patient is doing well, no complaints, stable vital signs, no apparent adverse anesthesia problems. No complications reported per nursing. FORD WILSON CRNA Dec 22, 2019 10:38
--- NOTE | 2019-12-23 02:12 | OPERATIVE REPORT ---
DATE OF SERVICE: 12/22/2019 PREOPERATIVE DIAGNOSES: Nausea, vomiting, gastritis and rectal bleed. POSTOPERATIVE DIAGNOSES: Gastritis, colon polyp, internal hemorrhoids. PROCEDURE: 1. EGD with biopsy. 2. Colonoscopy with hot biopsy. SURGEON: Tarik Cheung DO ONLINE COMMUNICATIONS MANAGER: Raymond Guerrero MS3. ANESTHESIA: IV sedation by NURSE SITTER. SPECIMEN: Biopsy from the antrum, biopsy of body of stomach, biopsy from the GE junction and then 2 colon polyps removed from the descending colon. BLOOD LOSS: Scant. FLUIDS: Per anesthesia. POSTOPERATIVE CONDITION: Stable. INDICATION FOR PROCEDURE: The patient is a 29-year-old male who has been having nausea, vomiting, gastritis and GERD symptoms as well as some rectal bleeding, needed a workup. FINDINGS: The patient had some gastritis, but nothing really else seen in the stomach. In the colon, he had 2 polyps found one looked like inflammatory polyp and then another flat polyp and he had some very minimal internal hemorrhoids. PROCEDURE NOTE: After informed consent was obtained, the patient was brought to the endoscopy suite, placed in bed in left lateral decubitus position. He was administered IV sedation by the NURSE SITTER who then monitored his vitals the entire time, heart rate, blood pressure and pulse ox and started with the EGD, placed the scope down the mouth through the esophagus into the stomach, noted some inflammation in the antrum, took a picture of this and then pushed into the duodenum. Duodenum looked fine. Pulled back and did a biopsy of the antrum. Retroflexed the scope, did not appear to have a hiatal hernia, did a biopsy of body of stomach and then pulled the scope into the GE junction, did a biopsy here, pushed the scope back into the stomach, suctioned all the air out and then pulled the scope up the esophagus and out the mouth. Switched camera, switched gloves, went down below, started the colonoscopy, pushed the scope in; on the way in in the descending colon, noted what looked like inflammatory polyp, took a picture of this and then did a hot biopsy, pushed all the way to the cecum, took a picture of appendiceal orifice and then able to get into the terminal ileum and then slowly withdrew the scope insufflating the circumferential cabrera looking the cecum, up the ascending colon to the hepatic flexure, then down the transverse colon, splenic flexure, into the descending colon. In the descending colon, saw another polyp, a flat polyp, I elected to do another hot biopsy of this and then continued down into the sigmoid and then into the rectum, retroflexed in rectal vault, saw some minimal internal hemorrhoids. This probably was the cause of his rectal bleeding, nothing else seen. At this point, then removed the scope. The patient tolerated the procedure. He was recovered in endoscopy suite. Job ID: [id number] DocumentID: [id number] Dictated Date: 12/22/2019 15:36:34 Plant Attendant Date: 12/23/2019 02:10:26 Dictated By: TARIK CHEUNG DO
== END 2019-12-22 11:10 | disposition home or self-care (01) ==
LOC: ENDO 08:47
PROVIDERS: ATTEND Surgery
DX: K29.70 Gastritis, unspecified, without bleeding (principal); D12.4 Benign neoplasm of descending colon; K63.5 Polyp of colon; K64.8 Other hemorrhoids; K21.9 Gastro-esophageal reflux disease without esophagitis; K31.9 Disease of stomach and duodenum, unspecified; R01.1 Cardiac murmur, unspecified; E66.9 Obesity, unspecified; Z68.33 Body mass index [BMI] 33.0-33.9, adult; F17.210 Nicotine dependence, cigarettes, uncomplicated; Z88.1 Allergy status to other antibiotic agents